=== PATIENT | female | born 1975 | race Caucasian/White ===

== ENCOUNTER 2016-11-25 19:39 | Emergency (ER) | payer OTHER ==
[2016-11-25 19:49] VITALS: BP 132/80; PULSE 84; TEMP 98; BMI 35.5
--- NOTE | 2016-11-25 20:31 | PDOC ---
History of Present Illness - General Chief Complaint: Bone Injury Stated Complaint: INJURY Time Seen by Provider: 11/25/16 20:29 History Source: Patient Exam Limitations: No Limitations - History of Present Illness Initial Comments: 11/25/16 21:08 Patient was walking across street in flip-flops when flip-flop folded causing her to fall toes first into curb. Struck second third and fourth toes into curb and has had swelling, ecchymosis and pain since that time. Occurred: reports: other (3 days ago, fell with ) Severity: reports: moderate Method of Injury: Yes: direct blow Modifying Factors: improves with: cold therapy Associated Symptoms (Fall): denies symptoms Past History - Travel Traveled outside of the country in the last 30 days: No Close contact w/someone who was outside of country & ill: No - Past Medical History Allergies/Adverse Reactions: Allergies Allergy/AdvReac Type Severity Reaction Status Date / Time No Known Allergies Allergy Verified 11/25/16 19:45 Home Medications: Ambulatory Orders Ibuprofen [Motrin -] 600 mg PO TID PRN 11/25/16 - Immunization History Immunization Up to Date: Yes - Psycho/Social/Smoking Cessation Hx Anxiety: No Suicidal Ideation: No Smoking History: Never smoked Hx Alcohol Use: Yes ("rarely") Drug/Substance Use Hx: No Substance Use Type: None Trauma Specific PMHX - Complaint Specific PMHX Back Injury: No Neck Injury: No Review of Systems - Review of Systems Able to Perform ROS?: Yes Comments:: 11/25/16 20:31 Constitutional: Yes: See HPI. No: Symptoms Reported HEENTM: No: Symptoms Reported Respiratory: No: Symptoms reported Musculoskeletal: Yes: Symptoms Reported, See HPI, Joint Swelling, Joint Stiffness Integumentary: Yes: Symptoms Reported, See HPI, Bruising All Other Systems: Reviewed and Negative *Physical Exam - Vital Signs Last Vital Signs Temp Pulse Resp BP Pulse Ox 98 F 84 18 132/80 99 11/25/16 19:47 11/25/16 19:47 11/25/16 19:47 11/25/16 19:47 11/25/16 19:47 - Physical Exam General Appearance: Yes: Appropriately Dressed, Apparent Distress HEENT: positive: FIDELINA, Normal ENT Inspection, TMs Normal, Pharynx Normal Neck: positive: Supple Extremity: positive: Normal Capillary Refill, Tender. negative: Normal Range of Motion Integumentary: positive: Normal Color, Swelling (third fourth and fifth toes, with tenderness reproduced at MTPs of left second third and fourth toes. 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 Gautam tape and cast shoe applied, will treat with NSAIDs and given 2 Percocets tonight *DC/Admit/Observation/Transfer Diagnosis at time of Disposition: Fracture of toe of left foot Qualifiers: Encounter type: initial encounter Toe: lesser toe Fracture type: closed Phalanx : proximal Fracture alignment: nondisplaced Qualified Code(s): S92.515A - Nondisplaced fracture of proximal phalanx of left lesser toe(s), initial encounter for closed fracture - Discharge Dispostion Disposition: HOME Condition at time of disposition: Stable Admit: No - Patient Instructions Printed Discharge Instructions: Toe Fracture Additional Instructions: Rest, ice to area on and off for 15 minutes 4-6 times a day Avoid heavy lifting or exercise until pain and swelling is resolved or until further directed Keep area highly elevated to reduce swelling Use splints/Jose wrap as directed Followup with orthopedist in one to 2 days if not improving, if significantly improved may wait one week for followup with orthopedist May use ibuprofen 2-200 mg tablets every 6 hours as needed for pain - Post Discharge Activity Work/School Note: Back to Work
[2016-11-25] MEDS ORDERED: IBUPROFEN 400 MG TABLET (FP) PO ONE ×2 (21:02→21:05)
[2016-11-25] MEDS ORDERED: OXYCODONE/APAP 5/325MG COMBO TABLET PO ONE (21:14)
[2016-11-25] MEDS ORDERED: OXYCODONE/APAP 5/325MG COMBO TABLET ONE (21:16)
== END 2016-11-25 21:24 | disposition home or self-care (01) ==
LOC: JERFT 19:39
DX: S92.515A Nondisplaced fracture of proximal phalanx of left lesser toe(s), initial encounter for closed fracture (principal); W10.1XXA Fall (on)(from) sidewalk curb, initial encounter; Y93.01 Activity, walking, marching and hiking; Y92.414 Local residential or business street as the place of occurrence of the external cause; Y99.8 Other external cause status
CPT/HCPCS: 73630-TC-LT; 99281-25

== ENCOUNTER 2018-03-10 09:47 | Emergency (ER) | payer OTHER ==
[2018-03-10 10:01] VITALS: BP 124/57; PULSE 80; TEMP 98; BMI 37.6
[2018-03-10] MEDS ORDERED: KETOROLAC TROMETHAMINE 60 MG/2 ML VIAL IM ONE (10:09)
--- NOTE | 2018-03-10 10:09 | PDOC ---
History of Present Illness - General Chief Complaint: Back Pain Stated Complaint: MUSCLE SPASM Time Seen by Provider: 03/10/18 10:08 History Source: Patient Exam Limitations: No Limitations - History of Present Illness Initial Comments: 03/10/18 10:09 42y F no pmhx presents with complaint of cramping nonradiating back pain worse in the upper back (between shoulder blades). Pt states that she was doing some painting on Sunday, on sunday, she woke up with mild pain on her back, took a skelaxin and felt better, was able help serve at a baby shower. Today, she woke up in more pain, could barely get out of bed, notes the pain comes in goes , lasts for a few minutes and feels like a spasm in her back. it worsens with certain positions of her arms (when she raises the arms to a abducted position) . pt denies any cp, sob, sanz, hemoptysis, numbness/tingling/weakness of the extremities, fever/chills, cough, abd pain, lower baldo pain, falls. pt notes some muscle spasms in the past that she came to the ED for, but this is in a different location but similar in nature. Past History - Past Medical History Allergies/Adverse Reactions: Allergies Allergy/AdvReac Type Severity Reaction Status Date / Time No Known Allergies Allergy Verified 11/25/16 19:45 Home Medications: Ambulatory Orders Lidocaine 5% Patch [Lidoderm Patch -] 1 patch TP ONCE 03/10/18 Metaxalone [Skelaxin] 800 mg PO ONCE 03/10/18 Metaxalone [Skelaxin] 800 mg PO TID PRN #15 tablet 03/10/18 COPD: No - Immunization History Immunization Up to Date: Yes - Suicide/Smoking/Psychosocial Hx Smoking History: Former smoker Have you smoked in the past 12 months: Yes If you are a former smoker, when did you quit?: FEBRUARY 2018 Information on smoking cessation initiated: Yes 'Breaking Loose' booklet given: 03/10/18 Hx Alcohol Use: Yes (RARE) Drug/Substance Use Hx: No Substance Use Type: None Review of Systems - Review of Systems Able to Perform ROS?: Yes Comments:: 03/10/18 10:14 Constitutional - no reported Fever, Chills, HEENT: no reported sore throat Respiratory: no reported cough, sob, hemoptysis Cardiac: no reported chest pain, palpitations, light headedness, leg swelling Abd/GI: no reported abd pain, nausea, vomiting, blood per rectum, melena, diarrhea : no reported dysuria, Musculskelatal - + back pain, no reported joint swelling skin - no reported bruising, erythema, rash neurological: no reported headache, numbness, focal weakness, tingling *Physical Exam - Vital Signs Last Vital Signs Temp Pulse Resp BP Pulse Ox 98.0 F 80 16 124/57 99 03/10/18 09:53 03/10/18 09:53 03/10/18 09:53 03/10/18 09:53 03/10/18 09:53 - Physical Exam Comments: 03/10/18 10:14 GENERAL: The patient is awake, alert, and fully oriented, Nontoxic - in no acute distress. HEAD: Normocephalic, atraumatic. EYES: extraocular movements intact, sclera anicteric, conjunctiva clear. ENT: Normal voice, Moist mucous membranes. NECK: Normal range of motion, supple LUNGS: Breath sounds equal, clear to auscultation bilaterally. No wheezes, no rhonchi, no rales. HEART: Regular rate and rhythm, normal S1 and S2 without murmur, rub or gallop. ABDOMEN: Soft, nontender, No guarding, no rebound. No CVA tenderness EXTREMITIES: Normal range of motion, no edema. No clubbing or cyanosis. No cords, erythema, or tenderness. exactly reproducible tenderness just medial to her R scapula on palpation, +pain exacerbated with posterior movement of her R elbow in an abducted psoition, pulses symmetric in radial b/l NEUROLOGICAL: No facial assymetry, Normal speech, normal gait PSYCH: Normal mood, normal affect. SKIN: Warm, Dry, normal turgor, Medical Decision Making - Medical Decision Making 03/10/18 10:16 suspect muscle spasms, likely due to her painting on sunday as pain is exactly reproducible by position and palpation considered possible AO dissection, however pt has few risk factors and her pain is atypical of such No red flags to suggest cord compression or neurologic symptoms or spinal epidural abscess. will treat pt with toradol here skelaxin and motrin at home pmd fu I discussed the physical exam findings, ancillary test results and final diagnoses with the patient. I answered all of the patient's questions. The patient was satisfied with the care received and felt comfortable with the discharge plan and treatment plan. The patient will call their primary care physician within 24 hours to arrange follow-up and will return to the Emergency Department with any new, persistent or worsening symptoms. *DC/Admit/Observation/Transfer Diagnosis at time of Disposition: Muscle spasm of back - Discharge Dispostion Disposition: HOME Condition at time of disposition: Improved Admit: No - Prescriptions Prescriptions: Metaxalone [Skelaxin] 800 mg PO TID PRN #15 tablet PRN Reason: Muscle Spasms - Referrals Referrals: Mak Sr [Other] - Patient Instructions Printed Discharge Instructions: DI for Back Spasm Additional Instructions: Return to the emergency department immediately with ANY new, persistent or worsening symptoms including numbness, tingling, weakness, fevers or any other concerns. Take ibuprofen (400mg)/tylenol(650mg) every 6 hours for 2 days. Take the Skelaxin as prescribed if you still have pain/discomfort. Caution in using Skalaxin as it may make you sleepy especially used with similar medications or alcohol. Do not take with alcohol or other similar muscle relaxants. Do not drive or put yourself in any position where you would be in danger. Apply heat to your sore muscles. You MUST call and follow up with your doctor in 3-4 days for further evaluation of your symptoms. Your emergency department visit is not complete without a followup with your doctor for reevaluation.. Results were discussed with you. Please make sure your doctor reviews the results of your emergency evaluation. Print Language: INDIAN - Post Discharge Activity
[2018-03-10] MEDS ORDERED: KETOROLAC TROMETHAMINE 60 MG/2 ML VIAL ONE (10:10)
== END 2018-03-10 10:37 | disposition home or self-care (01) ==
LOC: FER 09:47
PROC: 3E0233Z Introduction of Anti-inflammatory into Muscle, Percutaneous Approach (ICD-10-PCS; principal; 2018-03-10)
DX: M62.830 Muscle spasm of back (principal)
CPT/HCPCS: 99282-25

== ENCOUNTER 2018-11-30 12:33 | Emergency (ER) | payer SELFPAY ==
--- NOTE | 2018-11-30 12:38 | PDOC ---
History of Present Illness - General Chief Complaint: Pain Stated Complaint: LEFT SHOULDER/ARM PAIN Time Seen by Provider: 11/30/18 12:38 - History of Present Illness Initial Comments: 11/30/18 12:56 42yo female with hx of muscle spasms and arthritis presents ambulatory to the ED c/o constant L shoulder pain after getting back from [place]. States she landed back from [place] last sunday when the weather was very cold and when she stepped off the plane she felt her entire body "cramp up". States she has had constant L shoulder pain that worsens with abduction and extension of the shoulder. Most of the pain is the posterior aspect of the shoulder. Pt denies trauma. Denies carrying heavy bags during her trip in [place]. Pt denies leg cramping. No cp/sob. No cough. No f/c. No rashes. No midline c/t/l spine. Sensation intact. No swelling. No redness. No abd pain. No n/v/d. No other complaints. Pt has tried lidoderm patches at home without relief. No other meds tried. 11/30/18 13:02 PMHx: arthritis, muscle spasm pshx: c section x 2, tubal ligation allergies: nkda Past History - Past Medical History Allergies/Adverse Reactions: Allergies Allergy/AdvReac Type Severity Reaction Status Date / Time No Known Allergies Allergy Verified 11/30/18 12:39 Home Medications: Ambulatory Orders Lidocaine 5% Patch [Lidoderm Patch -] 1 patch TP ONCE 03/10/18 Ibuprofen [Motrin -] 600 mg PO TID PRN #21 tablet 11/30/18 Methocarbamol [Robaxin -] 500 mg PO BID PRN #14 tablet 11/30/18 COPD: No - Immunization History Immunization Up to Date: Yes - Suicide/Smoking/Psychosocial Hx Smoking History: Former smoker Have you smoked in the past 12 months: Yes If you are a former smoker, when did you quit?: FEBRUARY 2018 'Breaking Loose' booklet given: 03/10/18 Hx Alcohol Use: Yes (RARE) Drug/Substance Use Hx: No Substance Use Type: None Review of Systems - Review of Systems Able to Perform ROS?: Yes Is the patient limited [place] proficient: No Constitutional: No: Chills, Fever HEENTM: No: Nose Congestion, Throat Pain Respiratory: No: Cough, Shortness of Breath Cardiac (ROS): No: Chest Pain ABD/GI: No: Diarrhea, Nausea, Vomiting, Abdominal cramping : No: Burning Musculoskeletal: Yes: Joint Pain, Muscle Pain, Other (L shoulder pain) Integumentary: No: Rash Neurological: No: Headache, Numbness, Paresthesia, Tingling, Weakness All Other Systems: Reviewed and Negative *Physical Exam - Vital Signs 11/30/18 13:04 Selected Entries 11/30/18 12:34 Temperature 97.9 F Pulse Rate 99 H Respiratory 16 Rate Blood Pressure 106/62 Blood Pressure 76 Mean O2 Sat by Pulse 100 Oximetry (%) Weight 113.398 kg - Physical Exam General Appearance: Yes: Nourished, Appropriately Dressed. No: Apparent Distress HEENT: positive: EOMI Neck: positive: Trachea midline, Supple. negative: Tender, Tender midline Respiratory/Chest: positive: Lungs Clear, Normal Breath Sounds. negative: Respiratory Distress Cardiovascular: positive: Regular Rhythm, Regular Rate, S1, S2. negative: Edema Gastrointestinal/Abdominal: positive: Normal Bowel Sounds, Soft. negative: Guarding, Rebound, Tenderness Musculoskeletal: positive: Normal Inspection. negative: CVA Tenderness, Vertebral Tenderness Extremity: positive: Normal Capillary Refill, Tender (L posterior shoulder ttp, pain with abduction above her shoulder level, pain with extension of the L shoulder, no ttp along the bicep tendon, no swelling, no rash), Other (radial pulses intact b/l, distal muscle strength itnact, no ttp at the elbow, from of the elbow on the L, no wrist ttp, no clavicle ttp, no rib ttp, returns supervisor strength normal, limited ROM of the L shoulder secondary to pain). 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, Fully Oriented, Alert, Normal Mood/ Affect, Motor Strength 5/5 Heart Score/ECG Review - ECG Intrepretation Comment:: 11/30/18 13:08 sinus at 90, nl axis, nl interval, no acute st/t wave findings Medical Decision Making - Medical Decision Making 11/30/18 13:07 a/p: 42yo female with 6 days of L shoulder pain -poss arthritis vs calcific tendonosis vs rotator cuff injury vs muscle spasm -PERC negative -low risk for ACS and no cp -will obtain ekg -xray L shoulder -anti-inflamm and muscle relaxer -hx of muscle spasms 11/30/18 13:09 hx of tubal ligation, currently menstruating 11/30/18 13:50 shoulder xray negative 11/30/18 14:10 pt states feeling slightly better still with limited ROM, but improved discussed xray and ekg findings stable for dc to home with orthopedic follow up for shoulder pain. discussed motrin/tylenol for pain answered all questions. again- pt denies cp *DC/Admit/Observation/Transfer Diagnosis at time of Disposition: Shoulder pain, left - Discharge Dispostion Disposition: HOME Condition at time of disposition: Stable Decision to Admit order: No - Prescriptions Prescriptions: Ibuprofen [Motrin -] 600 mg PO TID PRN #21 tablet PRN Reason: Pain Methocarbamol [Robaxin -] 500 mg PO BID PRN #14 tablet PRN Reason: Muscle Spasms - Referrals Referrals: Ihsan Wu MD [Staff Physician] - - Patient Instructions Printed Discharge Instructions: DI for Shoulder Pain Additional Instructions: Please apply ice - 20min on and 20 min off. Please follow up with the orthopedic surgeon in the next 2-3 days. Please take all medications as prescribed. Please return to the ED with any further concerns or complaints. - Post Discharge Activity
[2018-11-30] MEDS ORDERED: METHOCARBAMOL 500 MG TABLET PO ONE (12:53)
[2018-11-30] MEDS ORDERED: IBUPROFEN 600 MG TABLET (FP) PO ONE ×2 (12:53→12:57)
[2018-11-30] MEDS ORDERED: METHOCARBAMOL 500 MG TABLET ONE (12:56)
[2018-11-30 13:00] VITALS: BP 106/62; PULSE 99; TEMP 97.9; BMI 38.5
--- NOTE | 2018-12-01 10:58 | EKG ---
Test Reason : Blood Pressure : / mmHG Vent. Rate : 090 BPM Atrial Rate : 090 BPM P-R Int : 194 ms QRS Dur : 088 ms QT Int : 344 ms P-R-T Axes : 057 075 056 degrees QTc Int : 420 ms NORMAL SINUS RHYTHM NORMAL ECG NO PREVIOUS ECGS AVAILABLE Confirmed by DARRIUS VIDAL MD ([id number]) on 12/01/2018 10:58:23 AM Referred By: FLAQUITA AMIN Confirmed By:DARRIUS VIDAL MD
== END 2018-11-30 14:18 | disposition home or self-care (01) ==
LOC: FER 12:33
DX: M25.512 Pain in left shoulder (principal); Z87.891 Personal history of nicotine dependence
CPT/HCPCS: 73030-TC-LT-FY; 93005; 99282-25

== ENCOUNTER 2023-06-15 09:54 | Emergency (ER) | payer OTHER ==
[2023-06-15] MEDS ORDERED: METHOCARBAMOL 500 MG TABLET PO ONE (10:15)
[2023-06-15] MEDS ORDERED: ACETAMINOPHEN 500 MG TABLET (FP) PO ONE (10:15)
[2023-06-15] MEDS ORDERED: LIDOCAINE 5% TOPICAL PATCH TP ONE (10:15)
[2023-06-15] MEDS ORDERED: KETOROLAC TROMETHAMINE 15 MG/ML VIAL IM ONE (10:15)
[2023-06-15 10:16] VITALS: BP 119/74; PULSE 83; RESP 18; TEMP 98; BMI 35.4
[2023-06-15] MEDS ORDERED: KETOROLAC TROMETHAMINE 15 MG/ML VIAL ONE (10:21)
[2023-06-15] MEDS ORDERED: METHOCARBAMOL 500 MG TABLET ONE (10:21)
[2023-06-15] MEDS ORDERED: ACETAMINOPHEN 500 MG TABLET (FP) ONE (10:21)
[2023-06-15] MEDS ORDERED: LIDOCAINE 5% TOPICAL PATCH ONE (10:22)
[2023-06-15] MEDS ORDERED: LIDOCAINE PATCH REMOVAL MC SCH (22:00)
== END 2023-06-15 11:31 | disposition home or self-care (01) ==
LOC: FER 09:54
PROC: 3E0233Z Introduction of Anti-inflammatory into Muscle, Percutaneous Approach (ICD-10-PCS; principal; 2023-06-15)
DX: M54.41 Lumbago with sciatica, right side (principal)
CPT/HCPCS: 99284-25